=== PATIENT | female | born 1985 | race Caucasian/White ===

== ENCOUNTER → 2016-12-16 | Outpatient (CLI) | payer OTHER ==
[~2016-12-16] MED LIST: METR500T10 PO
--- NOTE | 2016-12-16 09:22 | RADRPT ---
EXAM DATE/TIME: 12/16/2016 07:53 [facility] COMPARISON: No previous studies available for comparison. INDICATIONS : Right shoulder pain since August after doing yard work. MEDICAL HISTORY : None. SURGICAL HISTORY : Cholecystectomy. Appendectomy. Rt&Lt knee ENCOUNTER: Subsequent ACUITY: 4-6 months PAIN SCORE: 3/10 LOCATION: Right shoulder TECHNIQUE: Multiplanar, multisequence MRI examination was performed without contrast. FINDINGS: ROTATOR CUFF: There is minimal tendinosis insertion supraspinatus tendon. LABRUM: Moderate superior labral tear MARROW/CARTILAGE: Bone marrow signal is homogeneous. Glenohumeral joint articular cartilage is within normal limits. OTHER: Mild subacromial and subdeltoid bursitis. CONCLUSION: Slap lesion superior glenoid. Mild tendinosis of supraspinatus tendon. There is no impingement. Isac Ren MD FACR on December 16, 2016 at 9:19 Board Certified Radiologist. This report was verified electronically.
== END ==
LOC: HRAD 06:57
PROVIDERS: ATTEND Orthopaedic Surgery
DX: M25.511 Pain in right shoulder (principal)
CPT/HCPCS: 73221

== ENCOUNTER → 2017-01-17 | Outpatient (CLI) | payer OTHER ==
[~2017-01-17] MED LIST changes: +FERR324T8 PO
== END ==
LOC: CPRE 13:02
PROVIDERS: ATTEND Obstetrics & Gynecology
DX: Z01.812 Encounter for preprocedural laboratory examination (principal); N83 Noninflammatory disorders of ovary, fallopian tube and broad ligament

== ENCOUNTER 2017-01-22 08:01 | Observation (INO) | payer OTHER ==
[~2017-01-22] VITALS: Ht 170.2 cm; Wt 71.8 kg
[2017-01-22] MEDS ORDERED: SODIUM CHLORIDE 0.9% INJ 100 ML ONE (08:25)
[2017-01-22] MEDS ORDERED: ceFAZolin INJ 1,000 MG VIAL ONE (08:25)
[2017-01-22 08:43] VITALS: BP 113/69; PULSE 73; RESP 16; TEMP 99.9; O2SAT 100
[2017-01-22] MEDS ORDERED: FERR324T8 PO (08:44)
[2017-01-22] MEDS ORDERED: SODIUM CHLORID 0.9% 500 ML IV PRN (09:00)
[2017-01-22] MEDS ORDERED: CHLORHEXIDINE GLUCONATE 2 % 1 PACK (2 CLOTHS) TOPICAL PRN (09:00)
[2017-01-22] MEDS ORDERED: POVIDONE IODINE 5% (ANTISEPSIS KIT) 4 APPLICATIONS EACH NARE PRN (09:00)
[2017-01-22] MEDS ORDERED: METOPROLOL TARTRATE 25 MG TAB PO PRN (09:00)
[2017-01-22] MEDS ORDERED: INSULIN HUMAN REGULAR 1,000 UNITS/10 ML VIAL SQ PRN (09:00)
[2017-01-22] MEDS ORDERED: LACTATED RINGER'S 1000 ML IV PRN (09:00)
[2017-01-22] MEDS ORDERED: ceFAZolin 1,000 MG/NS 100 ML IV SCH ×2 (09:00)
[2017-01-22] MEDS ORDERED: PROPOFOL 200 MG/20 ML AMP IV ONE (11:37)
[2017-01-22] MEDS ORDERED: LACTATED RINGER'S 1000 ML INJ 1,000 ML IV ONE (11:37)
[2017-01-22] MEDS ORDERED: ONDANSETRON HCL 4 MG/2 ML VIAL IV PUSH ONE (11:37)
[2017-01-22] MEDS ORDERED: ACETAMINOPHEN 1000 MG/100 ML VIAL IV ONE (13:50)
[2017-01-22] MEDS ORDERED: DEXAMETHASONE SOD PHOS 4 MG/ML VIAL ONE (13:50)
[2017-01-22] MEDS ORDERED: MIDAZOLAM HCL 2 MG/2 ML VIAL ONE (13:50)
[2017-01-22] MEDS ORDERED: fentaNYL CITRATE 250 MCG/5 ML AMP ONE (13:50)
[2017-01-22] MEDS ORDERED: SUGAMMADEX SODIUM 200 MG/2 ML VIAL IV PUSH ONE ×2 (16:36)
[2017-01-22] MEDS ORDERED: LACTATED RINGER'S 1000 ML INJ 1,000 ML IV SCH (17:20)
[2017-01-22] MEDS ORDERED: PROMETHAZINE HCL 25 MG TAB PO PRN (17:30)
[2017-01-22] MEDS ORDERED: SODIUM CHLORIDE 0.9% FLUSH 10 ML FLUSH IV FLUSH PRN (17:30)
[2017-01-22] MEDS ORDERED: ONDANSETRON HCL 4 MG/2 ML VIAL IVP PRN (17:30)
[2017-01-22] MEDS ORDERED: oxyCODONE/ACETAMINOPHEN 5 MG/325 MG TAB PO PRN ×2 (17:30)
[2017-01-22] MEDS ORDERED: IBUPROFEN 600 MG TAB PO PRN (17:30)
[2017-01-22] MEDS ORDERED: ZOLPIDEM TARTRATE 5 MG TAB PO PRN (17:30)
[2017-01-22] MEDS ORDERED: ONDANSETRON ODT 4 MG TAB PO PRN (17:30)
[2017-01-22] MEDS ORDERED: PROMETHAZINE INJ 25 MG/ML VIAL IM PRN (17:30)
[2017-01-22 18:23] VITALS: BP 127/80; PULSE 77; RESP 16; TEMP 98.4; O2SAT 99
[2017-01-22] MEDS ORDERED: DO NOT ADM ANY ANTICOAGULANT DRUGS PRN (18:45)
[2017-01-22] MEDS: HYDROmorphone HCL PF 1 MG/ML VIAL IVP PRN (19:34)
[2017-01-22 20:00] VITALS: BP 112/69; PULSE 70; RESP 16; TEMP 98.2; O2SAT 98
[2017-01-22] MEDS ORDERED: DOCUSATE SODIUM 100 MG CAP PO SCH (21:00)
[2017-01-22] MEDS ORDERED: SODIUM CHLORIDE 0.9% FLUSH 10 ML FLUSH IV FLUSH SCH (21:00)
[2017-01-23 00:40] VITALS: BP 97/61; PULSE 86; RESP 16; TEMP 98.5; O2SAT 97
[2017-01-23] MEDS: HYDROmorphone HCL PF 1 MG/ML VIAL IVP PRN ×4 (00:57→15:14)
[2017-01-23 04:30] VITALS: BP 99/60; PULSE 77; RESP 16; TEMP 98.2; O2SAT 98
[2017-01-23 05:53] LABS: AUTOMATED NEUTROPHIL # 9.4 TH/MM3 (1.8-7.7); BASOPHIL % 0.3 % (0.0-2.0); EOSINOPHIL % 0.1 % (0.0-4.0); HEMATOCRIT 33.5 % (35.0-46.0); HEMO FLAGS DIFF FINAL; LYMPH % 14.6 % (9.0-44.0); LYMPHOCYTE # 1.7 TH/MM3 (1.0-4.8); MEAN CELL VOLUME 86.7 FL (80.0-100.0); MEAN CORPUSCULAR HEMOGLOBIN 28.4 PG (27.0-34.0); MEAN CORPUSCULAR HGB CONC 32.8 % (32.0-36.0); MONO % 6.2 % (0.0-8.0); NEUT % 78.8 % (16.0-70.0); PLATELET COUNT 232 TH/MM3 (150-450); RED BLOOD COUNT 3.87 MIL/MM3 (4.00-5.30); RED CELL DISTRIBUTION WIDTH 13.1 % (11.6-17.2); WHITE BLOOD COUNT 11.9 TH/MM3 (4.0-11.0)
[2017-01-23 06:13] LABS: BICARBONATE 25.1 MEQ/L (21.0-32.0); POTASSIUM 3.8 MEQ/L (3.5-5.1)
--- NOTE | 2017-01-23 07:48 | HHI.PR ---
Subjective Remarks Doing well, pain is well controlled, eating well. Tolerating diet well Not taking any motrin. Objective Vital Signs Vital Signs Date Time Temp Pulse Resp B/P Pulse Ox O2 Delivery O2 Flow Rate FiO2 01/23/17 04:30 98.2 77 16 99/60 98 01/23/17 00:40 98.5 86 16 97/61 97 01/22/17 20:00 98.2 70 16 112/69 98 01/22/17 18:23 98.4 77 16 127/80 99 01/22/17 18:00 77 16 116/68 99 Room Air 01/22/17 17:45 73 16 107/61 99 Room Air 01/22/17 17:35 98.7 84 14 120/75 100 Room Air 01/22/17 08:43 99.9 73 16 113/69 100 I/O 01/22/17 01/22/17 01/22/17 01/23/17 01/23/17 01/23/17 07:00 15:00 23:00 07:00 15:00 23:00 Intake Total 1354 ml Output Total 875 ml Balance 479 ml Intake IV Total 1354 ml Output Urine Total 875 ml Result Diagram: 01/23/17 0442 01/23/17 044 Objective Remarks Chest is clear, regular rate and rhythm. Abdomen is soft and non-distended. Incision is clean and dry. Ext no CCE. A/P Assessment and Plan Post Op Day 1 Doing well D/C [place] at noon Give 15mg toratol now and start motrin at noon Home today and return to office in two weeks. Aurelio Lei MD Jan 23, 2017 07:48
[2017-01-23] MEDS ORDERED: KETOROLAC TROMETHAMINE 30 MG/ML (IVP) VIAL IV PUSH ONE (08:30)
[2017-01-23 09:30] VITALS: BP 103/60; PULSE 73; RESP 16; TEMP 98.3; O2SAT 96
[2017-01-23 14:20] VITALS: BP 98/59; PULSE 77; RESP 16; TEMP 98.6; O2SAT 98
--- NOTE | 2017-01-23 17:23 | HHI.DCPOC ---
Discharge Care Plan Diagnosis: (1) H/O hysterectomy for benign disease Report Symptoms to Your Doctor -Temperature above 100.5 degrees -Redness, of incision or excessive or foul smelling drainage -Unusual pain or calf pain -Increased vaginal bleeding -Painful or difficulty urinating -Feelings of extreme sadness or anxiety after 2 weeks Goals to Promote Your Health * To prevent worsening of your condition and complications * To maintain your health at the optimal level Directions to Meet Your Goals Take your medications as prescribed Follow your dietary instruction Follow activity as directed Ensure plenty of rest for recovery Drink fluids for hydration Keep your appointments as scheduled Take your immunizations and boosters as scheduled If your symptoms worsen call your PCP, if no PCP go to Urgent Care Center or Emergency Room Smoking is Dangerous to Your Health. Avoid second hand smoke Call the 24-hour crisis hotline for domestic abuse at Aurelio Lei MD Jan 23, 2017 17:23
--- NOTE | 2017-02-05 14:51 | MP ---
cc: Aurelio LEI MD DATE OF SURGERY: 01/22/2017 PREOPERATIVE DIAGNOSIS 1. Severe pelvic pain. 2. Hydrosalpinx. 3. Status post tubal ligation. 4. Status post endometrial ablation. POSTOPERATIVE DIAGNOSIS 1. Severe pelvic pain. 2. Hydrosalpinx. 3. Status post tubal ligation. 4. Status post endometrial ablation. 5. Pelvic adhesions. PROCEDURE Laparoscopic-assisted vaginal hysterectomy, lysis of adhesions around the ovary, and bilateral salpingectomy. SURGEON Aurelio Lei MD FINDINGS On examination under anesthesia the vagina was clean, the cervix was clean without lesions. The uterus was normal size, shape and consistency and freely mobile. The adnexa were negative for masses. Laparoscopic exam revealed a normal uterus. There was a hydrosalpinx bilaterally, however, the right was bigger than the left and was quite impressive. The tubes were tied in the midportion. The uterus was normal. The cul-de-sacs were normal. The ovaries were normal except there was quite a bit of adhesions around both. These were all taken down. The upper abdomen was normal. COMPLICATIONS There was some bleeding on the right side of the cuff which was taken care with a single stitch. COUNTS Correct. ESTIMATED BLOOD LOSS 100 cc. FLUIDS Crystalloids. CONDITION The patient tolerated the procedure well and went to the recovery room in good condition. DETAILS OF PROCEDURE The patient was taken to the operating room, identified by name band and verbally, placed in dorsal lithotomy position, prepped and draped in the usual sterile fashion for laparoscopic-assisted vaginal hysterectomy. A timeout was taken at this point and everybody agreed. A speculum was placed in the vagina. The anterior lip of the cervix was grasped with a single-tooth tenaculum. A uterine manipulator was then placed without difficulty. A Jacome catheter had been inserted. Clear urine was noted. Attention was turned to the subumbilical area. A small subumbilical incision was made and using a 5 mm trocar the abdomen was entered without difficulty and pneumoperitoneum created with 3 liters of CO2. Inferolateral to the umbilicus bilaterally put two more 5 mm trocars for manipulation and for surgical instruments. At the beginning of the case we started to restore the pelvic anatomy. There were adhesions around both ovaries. These were taken down by sharp and blunt dissection using a Harmonic scalpel. The results were excellent. Once this had been accomplished the fimbriated end of the fallopian tube was taken down along the mesosalpinx until the uterus was attained. The broad ligament was then taken down bilaterally. A bladder flap was then created with the Harmonic scalpel in the usual fashion pushing the bladder out of harm's way and pushed well down over the vaginal area. The uterine vessels were skeletonized bilaterally and taken at the level of the internal cervical os. The cardinal ligament was then taken down and the vagina entered under direct vision. The vagina was transected with the Harmonic scalpel. At this point there was some bleeding from the cuff and we removed the specimen from below and repaired the cuff with 0 Vicryl sutures interrupted without difficulty. There was some bleeding on the right side of the cuff when we looked back in and we got another stitch to make that hemostatic. At this point there was no more bleeding. We went back up top and irrigated the area with a large amount of fluids. There was no more bleeding of the cuff, everything looked normal. We left the air loose, removed all the instruments and repaired the surgical incision sites with 4-0 Monocryl in subcuticular fashion. She tolerated the procedure well and went to the recovery room in good condition. R. MD ANGELIQUE He/MILDRED /3:04 PM /2:35 PM
== END 2017-01-23 17:35 | disposition home or self-care (01) ==
LOC: HSDC 08:01 → HSDI 17:23 → H1EA 18:17
PROVIDERS: ADMIT Obstetrics & Gynecology; ATTEND Obstetrics & Gynecology
DX: R10.2 Pelvic and perineal pain (principal); N70.11 Chronic salpingitis; Z98.51 Tubal ligation status; N73.6 Female pelvic peritoneal adhesions (postinfective)
CPT/HCPCS: 00840; 58552; 80048; 85025; 88307; 94150; C1765; G0378; J0131; J0690; J1100; J1170; J1885; J2250; J2405; J2550; J3010; J7120

== ENCOUNTER → 2017-04-22 | Day surgery (SDC) | payer OTHER ==
[~2017-04-22] MED LIST changes: +BUPIVACAINE HCL PF 0.75% 30 ML VIAL ONE; +BUPIVACAINE/EPINEPHRINE 0.25% 50 ML VIAL ONE; +EPINEPHrine HCL (1:1000) 1 MG/ML VIAL ONE; +LIDOCAINE 1.5%/EPINEPHrine 1:200,000 PF SOLN 30 ML AMP ONE; -METR500T10 PO; +MIDAZOLAM HCL 5 MG/ML VIAL (1 ML) ONE; +ONDANSETRON HCL 4 MG/2 ML VIAL IV PUSH ONE; +PROPOFOL 500 MG/50 ML BTL IV ONE; +SODIUM CHLOR 0.9% 1000 ML BAG IV ONE; +ceFAZolin INJ 1,000 MG VIAL ONE
--- NOTE | 2017-04-22 11:29 | TN ---
cc: CELE CHERRY M.D. DATE OF SURGERY: 04/22/2017 PREOPERATIVE DIAGNOSIS 1. Right shoulder rotator cuff tendinitis with subacromial impingement. 2. 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 3. Possible labral tear. POSTOPERATIVE DIAGNOSIS 1. Right shoulder subacromial impingement and subclavicular impingement with subacromial bursitis. 2. Acromioclavicular degenerative arthritis with subclavicular impingement. PROCEDURE PERFORMED 1. Right shoulder arthroscopy with a subacromial decompression. 2. Right shoulder arthroscopic partial distal clavicle excision (>10 mm). SURGEON Lucas. ANESTHESIA General via laryngeal mask augmented by interscalene block and local infiltration. ESTIMATED BLOOD LOSS Minimal. FLUID REPLACEMENT 800 cc of crystalloid. SPECIMEN No specimens were sent. COUNTS All counts were correct. IMPLANTS There were no implants utilized. COMPLICATIONS There were no intraoperative complications. INDICATIONS FOR PROCEDURE Lisette is a 32-year-old woman who has been experiencing problems with right shoulder pain, weakness and stiffness since 2016. She has had extensive conservative treatment without significant improvement of her impingement-like symptoms in the shoulder. She has had some improvement with subacromial injection, but little relief or certainly less significant relief was seen with glenohumeral injection. Due to the persistence of her symptoms despite extensive conservative treatment she is being taken to the operating room for shoulder arthroscopy. Her MRI was concerning for subacromial and subclavicular impingement, acromioclavicular degenerative arthritis as well as what appears to be partial thickness tears seen of the rotator cuff. There were also several images which showed increased signal concerning for a labral tear but it also looked similar to a redundant fold or possible sublabral hole. No definite biceps root looked destabilized or subluxed. She was aware of the risks, benefits, potential complications and limitations of the procedure and full written informed consent has been obtained. She has specifically denied further ongoing conservative management based on the persistence of her symptoms. DESCRIPTION OF PROCEDURE After the patient was identified in the holding area she correctly marked her right shoulder and I initialed it as well. She was then given one gram of intravenous Ancef as prophylactic antibiotic. She was also given an interscalene block under ultrasound guidance by Dr. Plaza in the holding area. and was taken into the operating suite. There she was placed under general laryngeal mask anesthetic also by Dr. Plaza and then she was placed into the lateral decubitus position with the left side down and the right side up, and the right arm was placed in the Arthrex arm collazo. Once this was applied all bony prominences were padded and then she was placed into 10 pounds of in-line traction at approximately 45 degrees of abduction and neutral flexion. She was then prepped with alcohol and Hibiclens and draped in normal standard fashion. At this time a brief timeout was held confirming the right shoulder was the appropriate surgical site. The team was in agreement and the case was now begun. At this time a posterior portal was initially established. It was half the distance between the posterolateral corner of the acromion and the standard posterior glenohumeral portal. A second portal was initiated as an accessory portal over the lateral subacromial space. I went ahead and injected approximately 10 cc of 0.25% Marcaine with epinephrine in the portals for postoperative pain relief and also for hemostasis. I went ahead and initially directed the scope into the glenohumeral joint because there was concern of possibility of labral tear. I went ahead and entered it without difficulty and briefly inspected the joint. There was no evidence of any obvious labral tear or any high-grade cartilage loss or biceps tendon rupture. No definite rotator cuff tear was appreciated from the intraarticular portion of the joint. The shoulder was suctioned decompressed and I went ahead and repositioned that same posterior portal into the subacromial space. I was trying to perform as little damage to the rotator cuff as possible by limiting the intraarticular portion of the arthroscopy if there was no evidence of anything other then just mild degenerative changes now based upon my knowledge of the intraarticular portion of the shoulder as well as radiographically to anticipate at this time. At this time the subacromial space was now entered. There was high-grade impingement anatomy, especially appreciated at the subclavicular level. There was curvature of the undersurface of the acromion also causing some impingement but not as severe as the subclavicular site. There was thickened hypertrophic bursal tissue in the subacromial space and I went ahead and did a thorough bursectomy of the space in order to visualize the tendons quite well. Once the majority of the bursal tissue was excised I was able to visualize the entire surface of the rotator cuff. There was no evidence of any rotator cuff tear on the bursal side and it was somewhat hypertrophic and erythematous near the junction of the supraspinatus and the tendon insertion but nothing of concern that would require repair. I went ahead and further removed the periosteal tissue on the deep surface of the acromion and then used a high-speed bur to do an acromioplasty where I flattened the undersurface of the acromion quite well to help prevent any problems with recurrent impingement. In addition to that I also released the coracoacromial ligament which was allowed to retract distally away from the site and this also significantly opened up the subclavicular space. At this time I went ahead and dissected further medially until I got to the level of the AC joint. There was both arthritis between the two surfaces of the acromion and the clavicle and I went ahead and performed a partial distal clavicle excision of 9 or 10 mm. I also was very careful to remove the deep portion of the clavicle which was clearly causing both indentation and impingement on the level of the supraspinatus muscle belly. The impingement at this level was quite tight and very significant and may very well be the source of the majority of her problems. At this time once I was satisfied that good decompression was obtained. I went ahead and used the underwater electrocautery to completely remove any remnants of the coracoacromial ligament and to get good hemostasis of the small vessels which were in this tissue. There was no evidence of any significant active bleeding. After having a nice flat roof to the acromion and being satisfied with the amount of clavicle excised I went ahead and inspected from the lateral subacromial accessory portal and it also showed evidence of a nice flat roof without any evidence of recurrent impingement. At this time the shoulder was thoroughly suctioned decompressed after being irrigated as well. The instruments were all removed after final suction decompression and the portals were closed with 3-0 nylon simple sutures. She tolerated the procedure well. She was extubated and taken to Recovery in stable condition. Appropriate postoperative instructions have been given. ScottI. Lucas MD Electronically Signed MD CADY Dasilva/MILDRED /10:51 AM /11:06 AM [email or web address]
== END | disposition home or self-care (01) ==
LOC: ESDC 07:44
PROVIDERS: ATTEND Orthopaedic Surgery Sports Medicine
DX: M75.41 Impingement syndrome of right shoulder (principal); M75.51 Bursitis of right shoulder; M19.011 Primary osteoarthritis, right shoulder
CPT/HCPCS: 01630; 01991; 29824; 29826; 64417; J0690; J2250; J2405; J7030; J0171

== ENCOUNTER 2017-09-30 12:36 | Day surgery (SDC) | payer OTHER ==
[~2017-09-30 12:36] MED LIST changes: -BUPIVACAINE HCL PF 0.75% 30 ML VIAL ONE; -BUPIVACAINE/EPINEPHRINE 0.25% 50 ML VIAL ONE; -EPINEPHrine HCL (1:1000) 1 MG/ML VIAL ONE; -LIDOCAINE 1.5%/EPINEPHrine 1:200,000 PF SOLN 30 ML AMP ONE; -MIDAZOLAM HCL 5 MG/ML VIAL (1 ML) ONE; -ONDANSETRON HCL 4 MG/2 ML VIAL IV PUSH ONE; -PROPOFOL 500 MG/50 ML BTL IV ONE; -SODIUM CHLOR 0.9% 1000 ML BAG IV ONE; -ceFAZolin INJ 1,000 MG VIAL ONE
[2017-09-30] MEDS ORDERED: LORA-474 PO (12:52)
[2017-09-30 12:55] VITALS: BP 142/84; PULSE 68; TEMP 98; O2SAT 97
[2017-09-30] MEDS ORDERED: SODIUM CHLORIDE 0.9% INJ 10 ML ONE (13:22)
--- NOTE | 2017-09-30 13:55 | PD.RAD ---
Post Procedure Progress Note Pre Procedure Diagnosis: (1) Right shoulder pain Post Procedure Diagnosis: (1) Right shoulder pain Procedure Date: Sep 30, 2017 Supervising Radiologist: Jhonatan Ren Estimated blood loss: NONE Plan of Activity Patient to Unit: ROPU Patient Condition: Good Additional Comments: Right shoulder arthrogram completed without difficulty. Full dictated report to follow See PACS Report for procedural detail/treatment Jhonatan Ren MD Sep 30, 2017 13:55
--- NOTE | 2017-09-30 14:49 | RADRPT ---
EXAM DATE/TIME: 09/30/2017 13:35 [facility] COMPARISON: No previous studies available for comparison. INDICATIONS : Patient presents with possible labral tear and or bicep rupture in need of right shoulder arthrogram for further evaluation. MEDICAL HISTORY : Kidney stones SURGICAL HISTORY : Appy Ligia Tubal ENCOUNTER: Initial ACUITY: >1 year PAIN SCORE: 4/10 LOCATION: Right Shoulder FLUORO TIME: 1.7 minutes IMAGE SERIES: 3 CONTRAST: 5 cc Omnipaque 350 MEDICATION(S): 1.) 5 cc Lidocaine IA 2.) 10 cc Sterile saline IA 3.) 0.2 cc Gadavist IA 4.) 5 cc of Visipaque 300 DEVICE(S): 25 gauge needle was placed into the right shoulder joint. RESPONSE: Pre procedure pain level was 4/10 Post procedure pain level was 2/10 TECH NOTE: Patient transported to MRI post precedure for further evaluation.SAROJ BARNETT MR#:[id number] DO B:84 Exam Dt/Desc: September 30, 2017ARTHROGRAM, SHOULDER, RIGHT PROCEDURE : 1. Fluoroscopically guided right shoulder joint puncture. 2. Arthrogram. The risks, benefits and alternatives to the procedure were explained and verbal and written consent w as obtained. The site was prepped in sterile fashion. Full sterile technique was used, including ca p, mask, sterile gloves and gown and a large sterile sheet. Hand hygiene and 2% chlorhexidine and/or betadine/alcohol prep was utilized per protocol for cutaneous antisepsis. The skin and subcutaneous tissues were infiltrated with local anesthetic solution. A 25 gauge needle was advanced through the skin into the joint without difficulty. The mixture of arash olinium, contrast and lidocaine was infused into the joint. Fluoroscopic imaging demonstrated the tip of contrast. MRI is pending for definitive assessment of th e joint. The patient tolerated the procedure well and there were no complications. Cross-sectional imaging is to be performed for further evaluation. CONCLUSION: Uncomplicated right shoulder arthrogram. Cross-sectional imaging is to be performed for further evalu ation. Jhonatan Ren MD on September 30, 2017 at 14:45 Board Certified Radiologist. This report was verified electronically.
[2017-09-30 15:05] VITALS: BP 114/69; PULSE 68; TEMP 97.6; O2SAT 97
--- NOTE | 2017-09-30 15:12 | RADRPT ---
EXAM DATE/TIME: 09/30/2017 14:04 [facility] COMPARISON: MRI SHOULDER RIGHT W/O CONTRAST, December 16, 2016, 7:53. ARTHROGRAM, SHOULDER, RIGHT, September 30, 2017, 1 3:35. INDICATIONS : Right shoulder pain, post arthrogram. CONTRAST: 1 cc Omniscan (gadodiamide) IV MEDICAL HISTORY : None. SURGICAL HISTORY : Appendectomy. Cholecystectomy. Hysterectomy. Bilateral knee sx, Foot sx, Rt shoulder sx. ENCOUNTER: Initial ACUITY: > 1 year PAIN SCORE: 2/10 LOCATION: Right lateral and anterior side of shoulder TECHNIQUE: Multiplanar, multisequence MRI examination was performed with contrast. FINDINGS: ROTATOR CUFF: The supraspinatus, infraspinatus, subscapularis, and teres minor tendons are intact. LABRUM: There appears to be a small tear involving the superior labrum. Otherwise, grossly it appears to be i ntact. MARROW/CARTILAGE: Bone marrow signal is homogeneous. Glenohumeral joint articular cartilage is within normal limits. OTHER: Acromioclavicular joint is within normal limits. Acromion is Type 1 (flat). Proximal biceps tendon is intact. POST-CONTRAST: There are no abnormal areas of enhancement on the post-contrast images. CONCLUSION: Small tear involving the superior labrum. Connor Krishnan MD on September 30, 2017 at 15:01 Board Certified Radiologist. This report was verified electronically.
== END 2017-09-30 15:21 | disposition home or self-care (01) ==
LOC: HROP 12:36 → HRIP 12:41 → HROP 15:21
PROVIDERS: ATTEND Orthopaedic Surgery Sports Medicine
DX: S43.431D Superior glenoid labrum lesion of right shoulder, subsequent encounter (principal)
CPT/HCPCS: 23350; 73222; 77002

== ENCOUNTER → 2017-11-26 | Day surgery (SDC) | payer OTHER ==
--- NOTE | 2017-11-20 15:05 | MH ---
cc: Tor Ruggiero MD DATE OF ADMISSION: 11/26/2017 DATE OF : 1985 REASON FOR ADMISSION: Cystoscopy for bladder pain. HISTORY OF PRESENT ILLNESS: The patient is a 32-year-old white female, 3, para 3, who has had a hysterectomy for endometriosis, has noted issues with bladder pain. She has also had urinary tract infections documented, culture positive, but continues to have pain even with negative cultures subsequently. The patient has tried [id number] medications and now wants to proceed with cystoscopy. PAST MEDICAL HISTORY: Negative for heart, lung, liver disease, hypertension, diabetes, stroke. PAST SURGICAL HISTORY: Laparoscopically-assisted vaginal hysterectomy. SOFTWARE RECRUITER HISTORY: No STDs or abnormal Pap smears. Has a history of endometriosis. OB HISTORY: 2, para 2. Full-term deliveries babies less than 8 pounds. FAMILY HISTORY: Noncontributory. SOCIAL HISTORY: No alcohol, tobacco, caffeine. Good social support. REVIEW OF SYSTEMS: As above. No chest pain, orthopnea, PND. No nausea, vomiting, fever or chills. No vaginal bleeding or discharge. ALLERGIES: BACTRIM, CIPRO, LEVAQUIN. PHYSICAL EXAMINATION: VITAL SIGNS: On exam, she is afebrile. Vital signs are stable. Blood pressure is 120/60, height 5 foot, 7 inches, weight 162. BMI is 25. GENERAL: The patient is alert and oriented x3, in no acute distress. No sign of cognitive dysfunction or depression. HEENT: Within normal limits. NECK: Supple. No JVD. CHEST: Clear. HEART: Regular rate and rhythm. ABDOMEN: Soft, nontender. No hepatosplenomegaly, mass or tenderness though PELVIC EXAM: Will be detailed under anesthesia. EXTREMITIES: Normal. SKIN: Without rashes. NEUROLOGIC: Non-focal. No DVT signs. ASSESSMENT: Patient with bladder pain syndrome. PLAN: At this point we have discussed the options for management and treatment. She is aware of the risks, benefits and alternatives of the planned procedure including damage to surrounding organs, bleeding, infection and the possibility the pain may not be relieved. The patient has made informed choice to proceed. We will use DVT prophylaxis with sequential compression device and antibiotic prophylaxis, Ancef 1 gram. Anticipate outpatient procedure. MD EMERY Obrien/CHIOMA , 02:38 PM , 03:04 PM
[~2017-11-26] VITALS: Ht 170.2 cm; Wt 78.7 kg
[~2017-11-26] MED LIST changes: +CHLORHEXIDINE GLUCONATE 2 % 1 PACK (2 CLOTHS) TOPICAL PRN; +DEXAMETHASONE SOD PHOS 4 MG/ML VIAL IV ONE; +DO NOT ADM ANY ANTICOAGULANT DRUGS PRN; -FERR324T8 PO; +INSULIN HUMAN REGULAR 1,000 UNITS/10 ML VIAL SQ PRN; +KETOROLAC TROMETHAMINE 30 MG/ML (IVP) VIAL IV PUSH ONE; +KETOROLAC TROMETHAMINE 60 MG/2 ML (IM) VIAL IM PRN; +LACTATED RINGER'S 1000 ML IV PRN; +LIDOCAINE HCL 1% PF 5 ML SYRINGE OTHER ONE; +METOPROLOL TARTRATE 25 MG TAB PO PRN; +ONDANSETRON HCL 4 MG/2 ML VIAL IV ONE; +ONDANSETRON ODT 4 MG TAB PO PRN; +POVIDONE IODINE 5% (ANTISEPSIS KIT) 4 APPLICATIONS EACH NARE PRN; +PROPOFOL 200 MG/20 ML AMP IV ONE; +SODIUM CHLORID 0.9% 500 ML IV PRN; +ceFAZolin 1,000 MG/NS 100 ML IV SCH; +fentaNYL CITRATE 250 MCG/5 ML AMP ONE; +traMADol HCL 50 MG TAB PO PRN
--- NOTE | 2017-11-26 11:13 | MP ---
cc: Tor Ruggiero MD DATE OF OPERATION: 11/26/2017 PREOPERATIVE DIAGNOSIS: Painful bladder syndrome, recurrent urinary tract infections, persistent dysuria. POSTOPERATIVE DIAGNOSIS: Painful bladder syndrome, recurrent urinary tract infections, persistent dysuria with hyperemic bladder, but no significant findings of diverticula, ulceration or significant abnormality of the trigone. SURGEON: Tor Ruggiero MD. ANESTHESIA: Laryngeal mask. 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 FLUIDS: 1000 mL crystalloid. URINE OUTPUT: 200 mL. FLUIDS: 1000 mL crystalloid. FINDINGS: External genitalia normal, Pop Q score Aa is -2, Ap is -2, point C is -8, total vaginal length is 8, general hiatus is 6, perineal body is 4. Bimanual exam is unremarkable except for some nodularity at the cuff on the right consistent with history of prior hysterectomy. Cystoscopy shows normal trigone. Good coaptation of urethra. Ureteral orifices patent x 2, dome and base of bladder normal. Some mild hyperemia with hydrodistention and some trabeculation, but no significant ulceration, glomerulations or other significant findings. Anesthetic bladder capacity is 550 mL. SPECIMENS: None. COMPLICATIONS: None. DISPOSITION: To recovery room stable. COUNTS: Needle and sponge counts correct. DRAINS: Jacome catheter. SUMMARY OF INDICATIONS FOR THE PROCEDURE: Patient with a history of bladder pain syndrome and recurrent urinary tract infections. DESCRIPTION OF THE PROCEDURE: The patient was taken to the operating room theater, identified, prepped and draped in the usual sterile fashion appropriate for the surgery. She was placed in the dorsal supine position with careful attention paid to placement of legs in the stirrups to avoid undue stress to sensitive neurovascular structures. The above findings noted. Neurovascular integrity documented. Cystoscopy performed using a 17-Cypriot bridge and a 70-degree scope. The above findings were noted. The bladder was hydro-distended with normal saline to a pressure of 45 cm of water. Bladder capacity was 550 mL. Repeat cystoscopy showed some mild hyperemia of the trigone, but no significant findings. The procedure was concluded. The patient was taken to the recovery room in stable condition. If the patient has continued issues with bladder pain, she may be a candidate for [id number] antihistamines, tricyclics, possible Botox or neural modulation. MD EMERY Obrien/LEONA , 10:20 AM , 11:12 AM
[2017-11-26 11:16] VITALS: BP 120/80; PULSE 59; RESP 16; TEMP 97.9; O2SAT 100
== END | disposition home or self-care (01) ==
LOC: HSDC 07:25
PROVIDERS: ATTEND Obstetrics & Gynecology Gynecology
DX: N30.10 Interstitial cystitis (chronic) without hematuria (principal); R39.89 Other symptoms and signs involving the genitourinary system; Z87.440 Personal history of urinary (tract) infections; Z88.1 Allergy status to other antibiotic agents
CPT/HCPCS: 00910; 52000; J0690; J1100; J1885; J2405; J3010